=== PATIENT | male | born 1985 | race Hispanic/Latino ===

== ENCOUNTER 2021-05-27 17:18 | Inpatient (IN) | payer SELFPAY ==
[~2021-05-27] VITALS: Ht 172.7 cm; Wt 158.8 kg
[2021-05-27] MEDS: VANCOMYCIN 750MG VIAL IVPB SCH (02:00)
[2021-05-27 17:48] LABS: BASOPHILS % (AUTO) 0.4 % (0.0-5.0); EOSINOPHILS % (AUTO) 0.1 % (0.0-8.0); HEMATOCRIT 48.4 % (42-54); LYMPHOCYTES % (AUTO) 7.2 % (21.0-51.0); MEAN CORPUSCULAR HEMOGLOBIN 29.1 pg (27.0-33.0); MEAN CORPUSCULAR HGB CONC 32.4 g/dL (32.0-36.0); MEAN CORPUSCULAR VOLUME 89.8 fL (79-99); MONOCYTES % (AUTO) 8.2 % (3.0-13.0); NEUTROPHILS % (AUTO) 83.2 % (40.0-77.0); PLATELET COUNT (AUTO) 125 K/uL (130-400); RED BLOOD CELL COUNT(AUTO) 5.39 MIL/uL (4.50-6.20); RED CELL DISTRIBUTION WIDTH 13.1 % (11.0-15.5); WHITE BLOOD COUNT (AUTO) 11.4 K/uL (4.8-10.8)
[2021-05-27 18:02] LABS: CREATININE 1.3 mg/dL (0.5-1.5); POTASSIUM 3.3 mmol/L (3.5-5.1)
[2021-05-27 18:03] LABS: APPEARANCE,URINE SL CLOUDY (CLEAR); BILIRUBIN,URINE MODERATE (NEGATIVE); COLOR,URINE ORANGE (YELLOW); GLUCOSE, URINE (UA) NEGATIVE (NEGATIVE); KETONES,URINE 15 mg/dL (NEGATIVE); LEUKOCYTE ESTERASE ,URINE NEGATIVE (NEGATIVE); NITRATE,URINE POSITIVE (NEGATIVE); OCCULT BLOOD,URINE NEGATIVE (NEGATIVE); PROTEIN,URINE 100 mg/dL (NEGATIVE)
[2021-05-27 18:07] LABS: BILIRUBIN,TOTAL 1.2 mg/dL (0.2-1.0); TOTAL PROTEIN, SERUM 7.7 g/dL (6.0-8.3)
[2021-05-27 18:11] LABS: BACTERIA,URINE Few /HPF (None Seen); SQUAMOUS EPITHELIAL CELL,UR Few /HPF (0-2)
[2021-05-27 18:12] LABS: MUCUS,URINE Moderate LPF (None Seen)
[2021-05-27] MEDS ORDERED: KETOROLAC 30MG VIAL (30MG/ML) IV ONE (18:30)
[2021-05-27] MEDS ORDERED: ACETAMINOPHEN 500 MG TABLET PO ONE (18:30)
[2021-05-27] MEDS ORDERED: MORPHINE 4 MG SYG IV ONE (18:30)
[2021-05-27] MEDS ORDERED: 0.9%NACL 1000ML 1,000 ML IV ONE (18:30)
[2021-05-27] MEDS ORDERED: VANCOMYCIN 1G VIAL IVPB ONE (18:30)
[2021-05-27] MEDS ORDERED: VANCOMYCIN 1G 2.5 GM in 0.9% NACL 500ML IV.SOLN 500 ML IV ONE (19:00)
[2021-05-27] MEDS ORDERED: ACETAMINOPHEN 325 MG TAB PO PRN (19:30)
[2021-05-27] MEDS ORDERED: MORPHINE 4 MG SYG IV PRN (19:30)
[2021-05-27] MEDS ORDERED: ONDANSETRON 4MG INJ IV PRN (19:30)
[2021-05-27] MEDS ORDERED: CEFAZOLIN SODIUM 1 GM VIAL IVP SCH (19:30)
[2021-05-27] MEDS ORDERED: MAG/ALUM/SIMETH 30 ML UDCUP PO PRN (19:30)
[2021-05-27] MEDS ORDERED: VANCOMYCIN PROTOCOL PER PHARMACY IV PRN (19:30)
[2021-05-27] MEDS ORDERED: LACTULOSE 20 GM/30 ML UDCUP PO PRN (19:30)
[2021-05-27] MEDS ORDERED: CLINDAMYCIN IVPB 600MG/50ML 50 ML IV SCH (20:30)
[2021-05-27] MEDS ORDERED: 0.9%NACL 100ML 100 ML ONE (20:59)
[2021-05-27] MEDS ORDERED: ZOSYN 3.375GM+NS 50ML 50 ML IV SCH (21:00)
[2021-05-27] MEDS: 0.9%NACL 1000ML 1,000 ML IV SCH (22:02)
[2021-05-27] MEDS: FAMOTIDINE 20MG TAB PO SCH (22:08)
[2021-05-27] MEDS: CLINDAMYCIN IVPB 600MG/50ML 50 ML IV SCH (22:08)
[2021-05-27] MEDS: HYDROCODONE/ACETAMINOPHEN 5/325 MG TAB PO PRN (23:24)
[2021-05-28] VITALS (7 sets, daily range): BP systolic 103–132; BP diastolic 35–93
[2021-05-28] MEDS: ACETAMINOPHEN 325 MG TAB PO PRN ×2 (01:40→04:45)
[2021-05-28] MEDS: 0.9% NACL 250ML 250 ML IV SCH ×3 (02:21→18:44)
[2021-05-28] MEDS: VANCOMYCIN 750MG VIAL IVPB SCH ×3 (02:22→18:44)
[2021-05-28] MEDS: CLINDAMYCIN IVPB 600MG/50ML 50 ML IV SCH ×3 (04:18→20:35)
[2021-05-28] MEDS: HYDROCODONE/ACETAMINOPHEN 5/325 MG TAB PO PRN ×2 (04:18→21:30)
[2021-05-28] MEDS: 0.9%NACL 1000ML 1,000 ML IV SCH ×2 (05:30→16:03)
[2021-05-28 05:52] LABS: HEMATOCRIT 38.9 % (42-54); MEAN CORPUSCULAR HEMOGLOBIN 29.8 pg (27.0-33.0); MEAN CORPUSCULAR HGB CONC 33.2 g/dL (32.0-36.0); MEAN CORPUSCULAR VOLUME 89.8 fL (79-99); RED BLOOD CELL COUNT(AUTO) 4.33 MIL/uL (4.50-6.20); RED CELL DISTRIBUTION WIDTH 13.1 % (11.0-15.5); WHITE BLOOD COUNT (AUTO) 10.3 K/uL (4.8-10.8)
[2021-05-28 06:12] LABS: CREATININE 1.2 mg/dL (0.5-1.5); POTASSIUM 3.4 mmol/L (3.5-5.1)
[2021-05-28] MEDS: ENOXAPARIN SODIUM 40 MG/0.4 ML SYRINGE SQ SCH (09:33)
[2021-05-28] MEDS: FAMOTIDINE 20MG TAB PO SCH ×2 (09:33→20:35)
[2021-05-28] MEDS: IBUPROFEN 600 MG TABLET PO PRN ×2 (09:33→23:22)
[2021-05-29] MEDS: 0.9%NACL 1000ML 1,000 ML IV SCH ×3 (01:24→23:32)
[2021-05-29] MEDS: VANCOMYCIN 750MG VIAL IVPB SCH ×3 (02:00→18:00)
[2021-05-29] MEDS: 0.9% NACL 250ML 250 ML IV SCH ×3 (02:01→18:00)
[2021-05-29 03:10] VITALS: BP 86/47
[2021-05-29] MEDS ORDERED: 0.9% NACL 500ML IV.SOLN 500 ML IV SCH (03:30)
[2021-05-29] MEDS ORDERED: 0.9% NACL 500ML IV.SOLN 500 ML IV ONE (03:35)
[2021-05-29 04:48] LABS: BASOPHILS % (AUTO) 0.5 % (0.0-5.0); EOSINOPHILS % (AUTO) 0.3 % (0.0-8.0); HEMATOCRIT 39.5 % (42-54); MEAN CORPUSCULAR HEMOGLOBIN 29.4 pg (27.0-33.0); MEAN CORPUSCULAR HGB CONC 31.9 g/dL (32.0-36.0); MEAN CORPUSCULAR VOLUME 92.1 fL (79-99); MONOCYTES % (AUTO) 6.4 % (3.0-13.0); NEUTROPHILS % (AUTO) 75.9 % (40.0-77.0); PLATELET COUNT (AUTO) 81 K/uL (130-400); RED BLOOD CELL COUNT(AUTO) 4.29 MIL/uL (4.50-6.20); RED CELL DISTRIBUTION WIDTH 13.2 % (11.0-15.5); WHITE BLOOD COUNT (AUTO) 13.8 K/uL (4.8-10.8)
[2021-05-29 05:07] LABS: CREATININE 1.3 mg/dL (0.5-1.5); POTASSIUM 3.3 mmol/L (3.5-5.1)
[2021-05-29] MEDS: CLINDAMYCIN IVPB 600MG/50ML 50 ML IV SCH ×3 (05:08→20:11)
[2021-05-29 06:41] VITALS: BP 108/62
[2021-05-29] MEDS: FAMOTIDINE 20MG TAB PO SCH ×2 (08:43→20:11)
[2021-05-29] MEDS: ENOXAPARIN SODIUM 40 MG/0.4 ML SYRINGE SQ SCH (08:47)
[2021-05-29 11:30] VITALS: BP 109/70
[2021-05-29] MEDS: ACETAMINOPHEN 325 MG TAB PO PRN ×2 (13:51→23:31)
[2021-05-29 16:00] VITALS: BP 102/48
[2021-05-29] MEDS ORDERED: VANCOMYCIN 1G 1.75 GM in 0.9% NACL 250ML 250 ML IV SCH (16:30)
[2021-05-29] MEDS: IBUPROFEN 600 MG TABLET PO PRN (19:01)
[2021-05-29 20:00] VITALS: BP 115/67
[2021-05-30] VITALS: BP 95/49
[2021-05-30] MEDS: VANCOMYCIN 750MG VIAL IVPB SCH ×3 (00:50→18:00)
[2021-05-30] MEDS: 0.9% NACL 250ML 250 ML IV SCH ×6 (00:50→22:34)
[2021-05-30 04:00] VITALS: BP 114/65
[2021-05-30] MEDS: CLINDAMYCIN IVPB 600MG/50ML 50 ML IV SCH ×3 (04:07→20:17)
[2021-05-30] MEDS ORDERED: VANCOMYCIN 1G/250ML KIT 250 ML IV ONE (04:16)
[2021-05-30] MEDS: VANCOMYCIN KIT 1 GM/250 ML IV.KIT IV SCH ×3 (05:17→22:34)
[2021-05-30] MEDS: 0.9%NACL 1000ML 1,000 ML IV SCH ×3 (06:58→20:17)
[2021-05-30 08:25] VITALS: BP 117/57
[2021-05-30] MEDS: ENOXAPARIN SODIUM 40 MG/0.4 ML SYRINGE SQ SCH (09:00)
[2021-05-30] MEDS: FAMOTIDINE 20MG TAB PO SCH ×2 (09:27→20:17)
[2021-05-30 11:04] VITALS: BP 125/78
[2021-05-30] MEDS: IBUPROFEN 600 MG TABLET PO PRN (14:33)
[2021-05-30] MEDS ORDERED: LIDOCAINE HCL-MPF 1% 2ML VIAL IV PRN (15:30)
[2021-05-30] MEDS ORDERED: POTASSIUM CHLORIDE 10% ELIXIR 20 MEQ/15 ML UDCUP PO PRN (15:30)
[2021-05-30] MEDS ORDERED: POTASSIUM CHLORIDE 20MEQ/100ML 100 ML IV PRN (15:30)
[2021-05-30 15:38] VITALS: BP 120/64
[2021-05-30 19:00] VITALS: BP 114/50
[2021-05-30] MEDS ORDERED: BACITRACIN 28.4 GM OINT TP SCH (21:00)
[2021-05-31] VITALS: BP 103/51
[2021-05-31] MEDS: 0.9% NACL 250ML 250 ML IV SCH ×5 (01:52→14:21)
[2021-05-31] MEDS: VANCOMYCIN 750MG VIAL IVPB SCH (01:52)
[2021-05-31 04:00] VITALS: BP 123/59
[2021-05-31] MEDS: CLINDAMYCIN IVPB 600MG/50ML 50 ML IV SCH (04:16)
[2021-05-31] MEDS: IBUPROFEN 600 MG TABLET PO PRN (04:17)
[2021-05-31] MEDS: VANCOMYCIN KIT 1 GM/250 ML IV.KIT IV SCH ×3 (05:06→20:53)
[2021-05-31 05:42] LABS: BASOPHILS % (AUTO) 0.6 % (0.0-5.0); HEMATOCRIT 36.3 % (42-54); LYMPHOCYTES % (AUTO) 7.2 % (21.0-51.0); MEAN CORPUSCULAR HGB CONC 32.2 g/dL (32.0-36.0); MEAN CORPUSCULAR VOLUME 90.1 fL (79-99); MONOCYTES % (AUTO) 5.6 % (3.0-13.0); NEUTROPHILS % (AUTO) 81.9 % (40.0-77.0); PLATELET COUNT (AUTO) 145 K/uL (130-400); RED BLOOD CELL COUNT(AUTO) 4.03 MIL/uL (4.50-6.20); RED CELL DISTRIBUTION WIDTH 13.2 % (11.0-15.5); WHITE BLOOD COUNT (AUTO) 17.5 K/uL (4.8-10.8)
[2021-05-31 06:01] LABS: ALBUMIN 1.7 g/dL (3.5-5.0); BILIRUBIN,TOTAL 0.6 mg/dL (0.2-1.0); CREATININE 1.1 mg/dL (0.5-1.5); TOTAL PROTEIN, SERUM 5.8 g/dL (6.0-8.3)
[2021-05-31 06:10] LABS: POTASSIUM 2.9 mmol/L (3.5-5.1)
[2021-05-31] MEDS: KCL 20 MEQ ERTAB PO PRN ×4 (07:10→15:59)
[2021-05-31] MEDS: FAMOTIDINE 20MG TAB PO SCH ×2 (09:20→20:52)
[2021-05-31] MEDS: ENOXAPARIN SODIUM 40 MG/0.4 ML SYRINGE SQ SCH (09:21)
[2021-05-31 12:00] VITALS: BP 117/67
[2021-05-31] MEDS: CEFAZOLIN SODIUM 1 GM VIAL IVP SCH ×2 (14:21→20:52)
[2021-05-31 16:00] VITALS: BP 128/86
[2021-05-31] MEDS: ACETAMINOPHEN 325 MG TAB PO PRN (20:57)
[2021-05-31 21:02] VITALS: BP 142/69
[2021-05-31] MEDS: 0.9%NACL 1000ML 1,000 ML IV SCH (23:30)
[2021-06-01] VITALS (7 sets, daily range): BP systolic 114–161; BP diastolic 59–81
[2021-06-01] MEDS ORDERED: ZOLPIDEM TARTRATE 5 MG TAB PO ONE
[2021-06-01] MEDS: 0.9% NACL 250ML 250 ML IV SCH ×3 (01:06→20:28)
[2021-06-01 05:44] LABS: BASOPHILS % (AUTO) 0.6 % (0.0-5.0); EOSINOPHILS % (AUTO) 1.3 % (0.0-8.0); LYMPHOCYTES % (AUTO) 8.4 % (21.0-51.0); MEAN CORPUSCULAR HEMOGLOBIN 29.2 pg (27.0-33.0); MEAN CORPUSCULAR HGB CONC 32.2 g/dL (32.0-36.0); MEAN CORPUSCULAR VOLUME 90.7 fL (79-99); MONOCYTES % (AUTO) 6.3 % (3.0-13.0); NEUTROPHILS % (AUTO) 78.3 % (40.0-77.0); PLATELET COUNT (AUTO) 222 K/uL (130-400); RED BLOOD CELL COUNT(AUTO) 4.08 MIL/uL (4.50-6.20); RED CELL DISTRIBUTION WIDTH 13.5 % (11.0-15.5); WHITE BLOOD COUNT (AUTO) 17.2 K/uL (4.8-10.8)
[2021-06-01 06:05] LABS: ALBUMIN 1.8 g/dL (3.5-5.0); BILIRUBIN,TOTAL 0.5 mg/dL (0.2-1.0); CREATININE 1.2 mg/dL (0.5-1.5); POTASSIUM 3.5 mmol/L (3.5-5.1); TOTAL PROTEIN, SERUM 6.4 g/dL (6.0-8.3)
[2021-06-01] MEDS: CEFAZOLIN SODIUM 1 GM VIAL IVP SCH ×3 (06:12→22:42)
[2021-06-01] MEDS: VANCOMYCIN KIT 1 GM/250 ML IV.KIT IV SCH ×3 (06:13→20:28)
[2021-06-01] MEDS: FAMOTIDINE 20MG TAB PO SCH ×2 (09:16→20:27)
[2021-06-01] MEDS: 0.9%NACL 1000ML 1,000 ML IV SCH ×2 (09:16→19:30)
[2021-06-01] MEDS: ENOXAPARIN SODIUM 40 MG/0.4 ML SYRINGE SQ SCH (09:16)
[2021-06-01] MEDS: ACETAMINOPHEN 325 MG TAB PO PRN (12:32)
[2021-06-01 15:11] LABS: HEMOGLOBIN A1C 5.2 % (4.0-6.0)
[2021-06-01] MEDS: KCL 20 MEQ ERTAB PO PRN ×2 (15:14→18:00)
[2021-06-02] VITALS (7 sets, daily range): BP systolic 120–162; BP diastolic 60–90
[2021-06-02] MEDS: 0.9% NACL 250ML 250 ML IV SCH ×4 (02:00→17:15)
[2021-06-02] MEDS: CEFAZOLIN SODIUM 1 GM VIAL IVP SCH ×3 (05:49→21:19)
[2021-06-02] MEDS: 0.9%NACL 1000ML 1,000 ML IV SCH ×2 (05:49→17:16)
[2021-06-02] MEDS: VANCOMYCIN KIT 1 GM/250 ML IV.KIT IV SCH ×3 (05:49→21:28)
[2021-06-02] MEDS: ENOXAPARIN SODIUM 40 MG/0.4 ML SYRINGE SQ SCH (09:37)
[2021-06-02] MEDS: FAMOTIDINE 20MG TAB PO SCH ×2 (09:37→21:18)
[2021-06-02 10:33] LABS: HEMATOCRIT 37.1 % (42-54); MEAN CORPUSCULAR HEMOGLOBIN 29.3 pg (27.0-33.0); MEAN CORPUSCULAR HGB CONC 32.6 g/dL (32.0-36.0); MEAN CORPUSCULAR VOLUME 89.8 fL (79-99); RED BLOOD CELL COUNT(AUTO) 4.13 MIL/uL (4.50-6.20); RED CELL DISTRIBUTION WIDTH 13.3 % (11.0-15.5); WHITE BLOOD COUNT (AUTO) 13.4 K/uL (4.8-10.8)
[2021-06-02 10:41] LABS: POTASSIUM 3.7 mmol/L (3.5-5.1)
[2021-06-02] MEDS: ACETAMINOPHEN WITH CODEINE 1 TAB TAB PO PRN ×2 (13:50→22:14)
[2021-06-03] VITALS: BP 144/77
[2021-06-03] MEDS: 0.9% NACL 250ML 250 ML IV SCH ×4 (02:47→21:29)
[2021-06-03 04:00] VITALS: BP 116/79
[2021-06-03 05:34] LABS: HEMATOCRIT 35.9 % (42-54); MEAN CORPUSCULAR HEMOGLOBIN 29.1 pg (27.0-33.0); MEAN CORPUSCULAR HGB CONC 31.2 g/dL (32.0-36.0); MEAN CORPUSCULAR VOLUME 93.2 fL (79-99); RED BLOOD CELL COUNT(AUTO) 3.85 MIL/uL (4.50-6.20); RED CELL DISTRIBUTION WIDTH 13.4 % (11.0-15.5); WHITE BLOOD COUNT (AUTO) 9.5 K/uL (4.8-10.8)
[2021-06-03 05:45] LABS: POTASSIUM 4.4 mmol/L (3.5-5.1)
[2021-06-03] MEDS: CEFAZOLIN SODIUM 1 GM VIAL IVP SCH ×3 (06:07→21:29)
[2021-06-03] MEDS: VANCOMYCIN KIT 1 GM/250 ML IV.KIT IV SCH ×3 (06:19→21:29)
[2021-06-03 08:01] VITALS: BP 136/70
[2021-06-03] MEDS: FAMOTIDINE 20MG TAB PO SCH ×2 (09:45→20:51)
[2021-06-03] MEDS: ENOXAPARIN SODIUM 40 MG/0.4 ML SYRINGE SQ SCH (09:46)
[2021-06-03 11:44] VITALS: BP 158/90
[2021-06-03] MEDS: ACETAMINOPHEN WITH CODEINE 1 TAB TAB PO PRN ×2 (13:19→23:36)
[2021-06-03 16:00] VITALS: BP 125/69
[2021-06-03 20:00] VITALS: BP 149/91
[2021-06-04] VITALS: BP_SYST 118; BP_SYST 142; BP_DIAS 55; BP_DIAS 58
[2021-06-04 04:00] VITALS: BP_SYST 128; BP_SYST 142; BP_DIAS 49; BP_DIAS 71
[2021-06-04 05:18] LABS: HEMATOCRIT 36.2 % (42-54); MEAN CORPUSCULAR HEMOGLOBIN 28.8 pg (27.0-33.0); MEAN CORPUSCULAR HGB CONC 30.7 g/dL (32.0-36.0); RED BLOOD CELL COUNT(AUTO) 3.85 MIL/uL (4.50-6.20); RED CELL DISTRIBUTION WIDTH 13.1 % (11.0-15.5)
[2021-06-04 05:30] LABS: CREATININE 1.1 mg/dL (0.5-1.5); POTASSIUM 4.3 mmol/L (3.5-5.1)
[2021-06-04] MEDS: CEFAZOLIN SODIUM 1 GM VIAL IVP SCH ×3 (05:49→20:42)
[2021-06-04] MEDS: VANCOMYCIN KIT 1 GM/250 ML IV.KIT IV SCH ×3 (05:49→20:42)
[2021-06-04 08:08] VITALS: BP 138/71
[2021-06-04] MEDS: ACETAMINOPHEN WITH CODEINE 1 TAB TAB PO PRN ×2 (08:38→20:43)
[2021-06-04] MEDS: FAMOTIDINE 20MG TAB PO SCH ×2 (08:38→20:42)
[2021-06-04] MEDS: ENOXAPARIN SODIUM 40 MG/0.4 ML SYRINGE SQ SCH (08:39)
[2021-06-04] MEDS: FUROSEMIDE 20MG VIAL IV SCH ×2 (11:48→20:43)
[2021-06-04 11:53] VITALS: BP 109/37
[2021-06-04] MEDS: 0.9% NACL 250ML 250 ML IV SCH ×3 (14:12→20:43)
[2021-06-04 16:01] VITALS: BP 117/45
[2021-06-04 20:00] VITALS: BP 145/70
[2021-06-04] MEDS: ZINC OXIDE OINT 56.7 GM TP SCH (20:43)
[2021-06-04] MEDS: SODIUM HYPOCHLORITE 0.125% 473 ML SOLUTION TP SCH (21:00)
[2021-06-05] VITALS: BP 125/68
[2021-06-05] MEDS: 0.9% NACL 250ML 250 ML IV SCH ×4 (01:59→21:27)
[2021-06-05] MEDS: FUROSEMIDE 20MG VIAL IV SCH (03:02)
[2021-06-05 04:00] VITALS: BP 135/72
[2021-06-05 04:16] LABS: HEMATOCRIT 38.8 % (42-54); MEAN CORPUSCULAR HEMOGLOBIN 28.9 pg (27.0-33.0); MEAN CORPUSCULAR HGB CONC 30.9 g/dL (32.0-36.0); MEAN CORPUSCULAR VOLUME 93.5 fL (79-99); RED BLOOD CELL COUNT(AUTO) 4.15 MIL/uL (4.50-6.20); RED CELL DISTRIBUTION WIDTH 12.9 % (11.0-15.5); WHITE BLOOD COUNT (AUTO) 5.9 K/uL (4.8-10.8)
[2021-06-05 04:40] LABS: CREATININE 1.1 mg/dL (0.5-1.5); POTASSIUM 4.2 mmol/L (3.5-5.1)
[2021-06-05] MEDS: VANCOMYCIN KIT 1 GM/250 ML IV.KIT IV SCH ×3 (06:03→21:26)
[2021-06-05] MEDS: CEFAZOLIN SODIUM 1 GM VIAL IVP SCH ×3 (06:03→22:42)
[2021-06-05 08:00] VITALS: BP 109/56
[2021-06-05] MEDS: ENOXAPARIN SODIUM 40 MG/0.4 ML SYRINGE SQ SCH (08:31)
[2021-06-05] MEDS: FAMOTIDINE 20MG TAB PO SCH ×2 (08:31→19:29)
[2021-06-05] MEDS: ACETAMINOPHEN WITH CODEINE 1 TAB TAB PO PRN ×2 (08:31→19:29)
[2021-06-05] MEDS: ZINC OXIDE OINT 56.7 GM TP SCH ×2 (08:34→21:32)
[2021-06-05] MEDS: SODIUM HYPOCHLORITE 0.125% 473 ML SOLUTION TP SCH ×3 (10:28→21:32)
[2021-06-05 12:00] VITALS: BP 114/66
[2021-06-05 16:00] VITALS: BP 123/50
[2021-06-05 20:00] VITALS: BP 141/68
[2021-06-06] VITALS (7 sets, daily range): BP systolic 123–134; BP diastolic 43–97
[2021-06-06 04:33] LABS: HEMATOCRIT 39.4 % (42-54); MEAN CORPUSCULAR HEMOGLOBIN 29.3 pg (27.0-33.0); MEAN CORPUSCULAR HGB CONC 31.2 g/dL (32.0-36.0); MEAN CORPUSCULAR VOLUME 93.8 fL (79-99); RED BLOOD CELL COUNT(AUTO) 4.2 MIL/uL (4.50-6.20); RED CELL DISTRIBUTION WIDTH 12.7 % (11.0-15.5); WHITE BLOOD COUNT (AUTO) 6.6 K/uL (4.8-10.8)
[2021-06-06 04:44] LABS: CREATININE 1.1 mg/dL (0.5-1.5); POTASSIUM 4.4 mmol/L (3.5-5.1)
[2021-06-06] MEDS: CEFAZOLIN SODIUM 1 GM VIAL IVP SCH ×3 (05:49→21:43)
[2021-06-06] MEDS: 0.9% NACL 250ML 250 ML IV SCH ×6 (05:49→21:43)
[2021-06-06] MEDS: VANCOMYCIN KIT 1 GM/250 ML IV.KIT IV SCH ×3 (05:49→21:43)
[2021-06-06] MEDS: ENOXAPARIN SODIUM 40 MG/0.4 ML SYRINGE SQ SCH (08:11)
[2021-06-06] MEDS: FAMOTIDINE 20MG TAB PO SCH ×2 (08:11→21:43)
[2021-06-06] MEDS: SODIUM HYPOCHLORITE 0.125% 473 ML SOLUTION TP SCH ×3 (08:14→21:44)
[2021-06-06] MEDS: ZINC OXIDE OINT 56.7 GM TP SCH ×2 (08:14→21:44)
[2021-06-07] MEDS: 0.9% NACL 250ML 250 ML IV SCH ×4 (01:49→18:00)
[2021-06-07] MEDS: VANCOMYCIN KIT 1 GM/250 ML IV.KIT IV SCH ×3 (04:58→20:41)
[2021-06-07] MEDS: CEFAZOLIN SODIUM 1 GM VIAL IVP SCH ×3 (04:59→20:41)
[2021-06-07 05:06] VITALS: BP 128/72
[2021-06-07 05:16] LABS: CREATININE 1.1 mg/dL (0.5-1.5); POTASSIUM 4.7 mmol/L (3.5-5.1)
[2021-06-07 08:00] VITALS: BP 132/69
[2021-06-07] MEDS: FAMOTIDINE 20MG TAB PO SCH ×2 (09:31→20:40)
[2021-06-07] MEDS: ENOXAPARIN SODIUM 40 MG/0.4 ML SYRINGE SQ SCH (09:32)
[2021-06-07] MEDS: ZINC OXIDE OINT 56.7 GM TP SCH ×2 (09:36→20:41)
[2021-06-07] MEDS: SODIUM HYPOCHLORITE 0.125% 473 ML SOLUTION TP SCH ×3 (09:36→20:40)
[2021-06-07 12:00] VITALS: BP 129/79
[2021-06-07 16:00] VITALS: BP 134/68
[2021-06-07] MEDS: ACETAMINOPHEN WITH CODEINE 1 TAB TAB PO PRN (20:40)
[2021-06-07 21:01] VITALS: BP 132/64
[2021-06-08 00:01] VITALS: BP 126/65
[2021-06-08] MEDS: 0.9% NACL 250ML 250 ML IV SCH ×2 (02:00→05:57)
[2021-06-08 04:58] VITALS: BP 94/69
[2021-06-08] MEDS: CEFAZOLIN SODIUM 1 GM VIAL IVP SCH ×2 (05:56→15:13)
[2021-06-08] MEDS: VANCOMYCIN KIT 1 GM/250 ML IV.KIT IV SCH (05:57)
[2021-06-08 06:44] LABS: BASOPHILS % (AUTO) 1.1 % (0.0-5.0); EOSINOPHILS % (AUTO) 4.4 % (0.0-8.0); HEMATOCRIT 42.4 % (42-54); LYMPHOCYTES % (AUTO) 26.6 % (21.0-51.0); MEAN CORPUSCULAR HEMOGLOBIN 29.5 pg (27.0-33.0); MEAN CORPUSCULAR HGB CONC 31.4 g/dL (32.0-36.0); MONOCYTES % (AUTO) 6.2 % (3.0-13.0); NEUTROPHILS % (AUTO) 60.9 % (40.0-77.0); PLATELET COUNT (AUTO) 426 K/uL (130-400); RED BLOOD CELL COUNT(AUTO) 4.51 MIL/uL (4.50-6.20); RED CELL DISTRIBUTION WIDTH 12.8 % (11.0-15.5); WHITE BLOOD COUNT (AUTO) 6.4 K/uL (4.8-10.8)
[2021-06-08 06:53] LABS: POTASSIUM 5.2 mmol/L (3.5-5.1)
[2021-06-08 08:15] VITALS: BP 102/44
[2021-06-08] MEDS: FAMOTIDINE 20MG TAB PO SCH (09:46)
[2021-06-08] MEDS: ENOXAPARIN SODIUM 40 MG/0.4 ML SYRINGE SQ SCH (09:46)
[2021-06-08] MEDS: SODIUM HYPOCHLORITE 0.125% 473 ML SOLUTION TP SCH (09:48)
[2021-06-08] MEDS: ZINC OXIDE OINT 56.7 GM TP SCH (09:50)
[2021-06-08 11:56] VITALS: BP 116/60
[2021-06-08] MEDS ORDERED: CEPH500B PO (12:49)
[2021-06-08] MEDS ORDERED: GENTAMICIN 15 GM CREAM TP SCH (16:21)
[2021-06-08 17:36] VITALS: BP 120/57
== END 2021-06-08 18:00 | disposition home or self-care (01) | DRG 871 ==
LOC: EDH 17:18 → OBSVTOIN 17:19 → EDHIP 17:19 → 3AH 05-28 01:46
PROVIDERS: ADMIT Hospitalist; ATTEND Hospitalist
DX: A41.9 Sepsis, unspecified organism (principal); E43 Unspecified severe protein-calorie malnutrition; L03.115 Cellulitis of right lower limb; Z68.43 Body mass index [BMI] 50.0-59.9, adult; E87.1 Hypo-osmolality and hyponatremia; L02.91 Cutaneous abscess, unspecified; E66.01 Morbid (severe) obesity due to excess calories; F17.210 Nicotine dependence, cigarettes, uncomplicated; E87.6 Hypokalemia; S80.821A Blister (nonthermal), right lower leg, initial encounter; Y93.89 Activity, other specified; Y92.89 Other specified places as the place of occurrence of the external cause; Y99.8 Other external cause status; Z88.0 Allergy status to penicillin; Z83.3 Family history of diabetes mellitus; Z80.0 Family history of malignant neoplasm of digestive organs
CPT/HCPCS: 36415; 71045; 73700; 80048; 80053; 80202; 81001; 82040; 82550; 83036; 83605; 84484; 85025; 85027; 87040; 87070; 87076; 87088; 87635; 87641; 87804; 93005; 93925; 93971; G0378; J0690; J1650; J1885; J1940; J2270; J3370; J3480; J3490; J7030; J7040; J7050